=== PATIENT | female | born 1970 | race Two or more races ===

== ENCOUNTER → 2016-08-04 | Outpatient (CLI) | payer OTHER ==
[~2016-08-04] MED LIST: BOSE125T PO; SPIR25TA3 PO
== END | disposition home or self-care (01) ==
LOC: CFH 06:59
PROVIDERS: ATTEND Internal Medicine Cardiovascular Disease
DX: I27.2 Other secondary pulmonary hypertension (principal); I07.1 Rheumatic tricuspid insufficiency; I34.0 Nonrheumatic mitral (valve) insufficiency; I37.1 Nonrheumatic pulmonary valve insufficiency
CPT/HCPCS: 93306

== ENCOUNTER 2016-09-01 09:29 | Day surgery (SDC) | payer OTHER ==
[2016-08-31 16:10] VITALS: BP 92/60
[~2016-09-01] VITALS: Ht 160 cm; Wt 55.0 kg
[2016-09-01] MEDS ORDERED: FENTANYL PF 100 MCG/2ML ONE (10:44)
[2016-09-01] MEDS ORDERED: MIDAZOLAM 1 MG/ML, 5ML ONE (10:44)
[2016-09-01] MEDS ORDERED: LIDOCAINE 2%, 20ML ONE (10:44)
[2016-09-01] MEDS ORDERED: TREP1.743 INH (10:50)
[2016-09-01] MEDS ORDERED: SPIR25TA PO (12:00)
== END 2016-09-01 15:16 | disposition home or self-care (01) ==
LOC: CACL 09:29
PROVIDERS: ATTEND Internal Medicine Cardiovascular Disease
DX: I27.0 Primary pulmonary hypertension (principal); G47.39 Other sleep apnea; K21.9 Gastro-esophageal reflux disease without esophagitis; G43.909 Migraine, unspecified, not intractable, without status migrainosus; E66.01 Morbid (severe) obesity due to excess calories; Z68.21 Body mass index [BMI] 21.0-21.9, adult
CPT/HCPCS: 71020; 93451; 99156; 99157; C1769; C1894; J2250; J3010; J3490

== ENCOUNTER 2016-10-19 10:36 | Day surgery (SDC) | payer OTHER ==
[~2016-10-19] VITALS: Ht 157.5 cm; Wt 55.5 kg
[~2016-10-19 10:36] MED LIST changes: +SPIR25TA PO; +TREP1.743 INH
[2016-10-19] MEDS ORDERED: SODIUM CHLORIDE 0.9% 1,000 ML IV SCH (10:56)
[2016-10-19] MEDS ORDERED: ONDANSETRON 2MG/ML, 2ML IVPush PRN (11:00)
[2016-10-19 11:13] VITALS: BP 85/57
[2016-10-19] MEDS ORDERED: PLEASE ENTER HEIGHT AND WEIGHT MC SCH (11:30)
[2016-10-19] MEDS ORDERED: FENTANYL PF 100 MCG/2ML ONE (11:42)
[2016-10-19] MEDS ORDERED: MIDAZOLAM 1 MG/ML, 5ML ONE (11:42)
[2016-10-19] MEDS ORDERED: LIDOCAINE 2%, 20ML ONE (11:42)
[2016-10-19 12:01] LABS: BLOOD UREA NITROGEN 14 mg/dL (7-18)
[2016-10-19] MEDS ORDERED: VERAPAMIL 2.5 MG/ML, 2ML ONE (12:53)
[2016-10-19] MEDS ORDERED: HEPARIN 1,000 UNITS/ML, 10ML ONE (12:54)
[2016-10-19] MEDS ORDERED: DIPHENHYDRAMINE 50 MG/ML, 1ML ONE (13:18)
== END 2016-10-19 16:43 ==
LOC: CACL 10:36
PROVIDERS: ATTEND Internal Medicine Cardiovascular Disease
DX: R06.02 Shortness of breath (principal); I10 Essential (primary) hypertension; Z98.890 Other specified postprocedural states
CPT/HCPCS: 36415; 80048; 85025; 85610; 85730; 93454; 99156; C1894; J1200; J1644; J2250; J3010; J3490; Q9967

== ENCOUNTER 2016-10-27 04:49 | Inpatient (IN) | payer OTHER ==
[2016-10-26 13:32] LABS: BLOOD UREA NITROGEN 13 mg/dL (7-18)
[2016-10-26 13:34] LABS: ASPARTATE AMINO TRANSFERASE 12 U/L (15-37)
[2016-10-27] VITALS (12 sets, daily range): BP systolic 74–129; BP diastolic 33–72
[~2016-10-27] VITALS: Ht 160 cm; Wt 66.8 kg
[2016-10-27] MEDS ORDERED: CHLORHEXIDINE MOUTHWASH 15 ML UDC MM SCH (05:00)
[2016-10-27] MEDS ORDERED: INSULIN ASPART 100 UNITS/ML, PEN SQ-INSULIN SCH (06:00)
[2016-10-27] MEDS ORDERED: FENTANYL PF 1000 MCG/20ML ONE (06:29)
[2016-10-27] MEDS ORDERED: MIDAZOLAM 10MG/2 ML ONE (06:30)
[2016-10-27] MEDS ORDERED: PROPOFOL 10 MG/ML, 20ML ONE (07:30)
[2016-10-27] MEDS ORDERED: POTASSIUM CHLORIDE 80 MEQ, SODIUM BICARBONATE 8.4% 10 MEQ, MAGNESIUM SULFATE 0.5 GM, LI... IV PRN (07:30)
[2016-10-27] MEDS ORDERED: EPINEPHRINE 2 MG in SODIUM CHLORIDE 0.9% 248 ML IV SCH (07:30)
[2016-10-27] MEDS ORDERED: DEXMEDETOMIDINE 200 MCG in SODIUM CHLORIDE 0.9% 48 ML IV SCH (07:30)
[2016-10-27] MEDS ORDERED: MANNITOL PMX 20% 500 ML IVPB PRN (07:30)
[2016-10-27] MEDS ORDERED: SODIUM CHLORIDE 0.9% IV PRN (07:30)
[2016-10-27] MEDS ORDERED: ALBUMIN HUMAN 5% 500 ML IV ONE (07:30)
[2016-10-27] MEDS ORDERED: ROCURONIUM 10 MG/ML ONE (07:30)
[2016-10-27] MEDS ORDERED: VANCOMYCIN IV PRN (07:30)
[2016-10-27] MEDS ORDERED: CEFUROXIME 1.5 GM in SODIUM CHLORIDE 0.9% 50 ML IVPB PRN (07:30)
[2016-10-27] MEDS ORDERED: PHENYLEPHRINE 10 MG in SODIUM CHLORIDE 0.9% 249 ML IV PRN ×2 (07:30→12:51)
[2016-10-27] MEDS ORDERED: REGULAR INSULIN 62.5 UNITS in SODIUM CHLORIDE 0.9% 249.375 ML IV PRN ×2 (07:30→12:51)
[2016-10-27] MEDS ORDERED: MUPIROCIN OINT 2%, 22GM TP SCH (09:00)
[2016-10-27] MEDS ORDERED: AMINOCAPROIC ACID 250 MG/ML, 20ML ONE (10:17)
[2016-10-27] MEDS ORDERED: PROTAMINE SULFATE 10 MG/ML, 25ML ONE (10:18)
[2016-10-27] MEDS ORDERED: CALCIUM CHLORIDE 10%, 10ML SYR ONE (12:05)
[2016-10-27] MEDS ORDERED: DOBUTAMINE 250 MG in SODIUM CHLORIDE 0.9% 230 ML IV PRN (12:51)
[2016-10-27] MEDS ORDERED: SODIUM CHLORIDE 0.9% 1,000 ML IV PRN (12:51)
[2016-10-27] MEDS ORDERED: DEXMEDETOMIDINE 200 MCG in SODIUM CHLORIDE 0.9% 48 ML IV PRN (12:51)
[2016-10-27] MEDS ORDERED: NITROGLYCERIN/D5W PMX 250 ML IV PRN (12:51)
[2016-10-27] MEDS ORDERED: MIDAZOLAM 1 MG/ML, 5ML IVPush PRN (13:00)
[2016-10-27] MEDS ORDERED: INSULIN ASPART 100 UNITS/ML, PEN SQ-INSULIN PRN (13:00)
[2016-10-27] MEDS ORDERED: DEXTROSE 50%, 50ML SYRINGE IVPush PRN (13:00)
[2016-10-27] MEDS ORDERED: GLUCAGON 1 MG IM PRN (13:00)
[2016-10-27] MEDS: KSCALE TO 4.5 IV SCH ×2 (13:00→18:21)
[2016-10-27] MEDS ORDERED: ACETAMINOPHEN 650 MG SUPP PR PRN (13:00)
[2016-10-27] MEDS ORDERED: MEPERIDINE/PF 25MG/0.5ML IVPush PRN (13:00)
[2016-10-27] MEDS ORDERED: PROCHLORPERAZINE 5 MG/ML, 2ML IVPush PRN (13:00)
[2016-10-27] MEDS ORDERED: BISACODYL 10 MG SUPP PR PRN (13:00)
[2016-10-27] MEDS ORDERED: SODIUM BICARB 8.4%, 50ML SYRINGE IV PRN (13:00)
[2016-10-27] MEDS ORDERED: ACETAMINOPHEN 325 MG TABLET PO PRN (13:00)
[2016-10-27] MEDS ORDERED: BISACODYL 5 MG EC TABLET PO PRN (13:00)
[2016-10-27] MEDS ORDERED: DEXTROSE 4 GM TAB.CHEW PO PRN (13:00)
[2016-10-27] MEDS ORDERED: SODIUM BICARB 8.4%, 50ML SYRINGE ONE (13:17)
[2016-10-27] MEDS ORDERED: ALBUMIN HUMAN 25% 50 ML ONE (13:18)
[2016-10-27] MEDS ORDERED: HEPARIN 1,000 UNITS/ML, 30ML ONE (13:18)
[2016-10-27] MEDS ORDERED: LIDOCAINE 2% 100MG/5ML SYRINGE ONE (13:18)
[2016-10-27] MEDS ORDERED: methylPREDNISolone SOD SUCC 125 MG/2 ML ONE (13:18)
[2016-10-27 13:33] LABS: ABG COLLECTION SITE ARTERIAL LINE
[2016-10-27] MEDS: SODIUM CHLORIDE FLUSH 10ML SYR IVF SCH ×3 (13:59→20:48)
[2016-10-27] MEDS: LACTATED RINGERS 500 ML IVBOLUS PRN ×3 (13:59→17:33)
[2016-10-27] MEDS ORDERED: POTASSIUM CHLORIDE PMX 100 ML IV ONE (14:00)
[2016-10-27] MEDS ORDERED: VASOPRESSIN 100 UNIT in SODIUM CHLORIDE 0.9% 495 ML IV PRN (15:00)
[2016-10-27] MEDS: morphine SULFATE 10 MG/ML, 1ML IVPush PRN ×2 (15:17→17:04)
[2016-10-27] MEDS: MAGNESIUM SULFATE 1 GM in SODIUM CHLORIDE 0.9% 50 ML IVPB SCH (16:47)
[2016-10-27] MEDS ORDERED: NOVOSEVEN RT (FACTOR VIIA) RECOMB 1,000 MCG IVPush ONE ×2 (17:30→21:00)
[2016-10-27] MEDS ORDERED: CALCIUM CHLORIDE 13.6 MEQ in SODIUM CHLORIDE 0.9% 100 ML IV ONE (18:30)
[2016-10-27] MEDS: OXYcodone IR 5MG TABLET PO PRN ×2 (18:49→22:06)
[2016-10-27] MEDS: ONDANSETRON 2MG/ML, 2ML IVPush PRN (19:39)
[2016-10-27] MEDS: VANCOMYCIN 700 MG in SODIUM CHLORIDE 0.9% 100 ML IVPB SCH (20:15)
[2016-10-27] MEDS: CEFUROXIME 1.5 GM in SODIUM CHLORIDE 0.9% 50 ML IVPB SCH (20:16)
[2016-10-27] MEDS: TYVASO IH SCH (20:43)
[2016-10-27] MEDS: DOCUSATE 100 MG CAPSULE PO SCH (20:47)
[2016-10-27] MEDS: TRACLEER 125 MG PO SCH (20:48)
[2016-10-27] MEDS: MUPIROCIN OINT 2%, 22GM NAS SCH (20:55)
[2016-10-28] VITALS (16 sets, daily range): BP systolic 95–111; BP diastolic 36–56
[2016-10-28] MEDS: HYDROcodone/APAP 10/325 MG TABLET PO PRN ×6 (00:48→20:31)
[2016-10-28] MEDS: KSCALE TO 4.5 IV SCH ×2 (01:00→07:00)
[2016-10-28] MEDS ORDERED: POTASSIUM CHLORIDE 30 MEQ in SODIUM CHLORIDE 0.9% 100 ML IV ONE (01:30)
[2016-10-28] MEDS: EPINEPHRINE 2 MG in SODIUM CHLORIDE 0.9% 248 ML IV PRN (02:48)
[2016-10-28] MEDS: VANCOMYCIN 700 MG in SODIUM CHLORIDE 0.9% 100 ML IVPB SCH (08:04)
[2016-10-28] MEDS: CEFUROXIME 1.5 GM in SODIUM CHLORIDE 0.9% 50 ML IVPB SCH (08:04)
[2016-10-28 09:36] LABS: BLOOD UREA NITROGEN 10 mg/dL (7-18)
[2016-10-28] MEDS: MUPIROCIN OINT 2%, 22GM NAS SCH ×2 (10:09→20:28)
[2016-10-28] MEDS: DOCUSATE 100 MG CAPSULE PO SCH ×2 (10:10→20:28)
[2016-10-28] MEDS: PANTOPRAZOLE 40 MG IV IVPush SCH (10:10)
[2016-10-28] MEDS: ASPIRIN 81 MG TABLET EC PO SCH (10:10)
[2016-10-28] MEDS: SODIUM CHLORIDE FLUSH 10ML SYR IVF SCH ×4 (10:11→20:35)
[2016-10-28] MEDS: TYVASO IH SCH ×2 (10:11→20:27)
[2016-10-28] MEDS: TRACLEER 125 MG PO SCH ×2 (10:12→20:28)
[2016-10-28] MEDS: WARFARIN HIGH DOSE PROTOCOL XX SCH (12:00)
[2016-10-28] MEDS: CHLORHEXIDINE MOUTHWASH 15 ML UDC MM SCH (13:05)
[2016-10-28] MEDS: ONDANSETRON 2MG/ML, 2ML IVPush PRN (14:35)
[2016-10-28] MEDS ORDERED: ALBUMIN HUMAN 5% 500 ML IV ONE (16:00)
[2016-10-28] MEDS: MAGNESIUM SULFATE 1 GM in SODIUM CHLORIDE 0.9% 50 ML IVPB SCH (16:03)
[2016-10-28] MEDS: OXYcodone IR 5MG TABLET PO PRN (16:23)
[2016-10-28] MEDS ORDERED: WARFARIN 10 MG TABLET PO-COUM SCH (18:00)
[2016-10-28] MEDS: INSULIN ASPART 100 UNITS/ML, PEN SQ-INSULIN SCH (20:26)
[2016-10-28] MEDS ORDERED: ALBUTEROL/IPRATROPIUM 2.5MG/0.5MG, 3 ML NPPB PRN (21:30)
[2016-10-29] MEDS: INSULIN ASPART 100 UNITS/ML, PEN SQ-INSULIN SCH ×7 (00:31→23:54)
[2016-10-29] MEDS: HYDROcodone/APAP 10/325 MG TABLET PO PRN ×5 (00:32→21:03)
[2016-10-29] MEDS: CHLORHEXIDINE MOUTHWASH 15 ML UDC MM SCH ×2 (00:35→14:58)
[2016-10-29] MEDS: EPINEPHRINE 2 MG in SODIUM CHLORIDE 0.9% 248 ML IV PRN ×3 (04:02→23:25)
[2016-10-29 04:10] VITALS: BP 95/49
[2016-10-29 04:47] LABS: BLOOD UREA NITROGEN 8 mg/dL (7-18)
[2016-10-29] MEDS ORDERED: FUROSEMIDE 40 MG/4 ML IV ONE ×3 (08:40→17:00)
[2016-10-29] MEDS: SODIUM CHLORIDE FLUSH 10ML SYR IVF SCH ×4 (09:00→21:04)
[2016-10-29] MEDS ORDERED: FUROSEMIDE 20 MG/2 ML IV SCH ×2 (09:00→17:00)
[2016-10-29] MEDS ORDERED: ENOXAPARIN 40 MG/0.4 ML SQ SCH (09:00)
[2016-10-29] MEDS: TYVASO IH SCH ×2 (09:14→21:00)
[2016-10-29] MEDS: DOCUSATE 100 MG CAPSULE PO SCH ×2 (09:15→21:02)
[2016-10-29] MEDS: POTASSIUM CHLORIDE 10 MEQ TABLET.ER PO SCH (09:15)
[2016-10-29] MEDS: MUPIROCIN OINT 2%, 22GM NAS SCH ×2 (09:15→21:01)
[2016-10-29] MEDS: PANTOPRAZOLE 40 MG IV IVPush SCH (09:15)
[2016-10-29] MEDS: ASPIRIN 81 MG TABLET EC PO SCH (09:15)
[2016-10-29] MEDS: TRACLEER 125 MG PO SCH ×2 (09:15→21:02)
[2016-10-29] MEDS ORDERED: POTASSIUM CHLORIDE 20 MEQ TAB.ER.PRT PO ONE ×2 (10:30→17:00)
[2016-10-29] MEDS: WARFARIN HIGH DOSE PROTOCOL XX SCH (12:00)
[2016-10-29] MEDS: ONDANSETRON 2MG/ML, 2ML IVPush PRN (12:17)
[2016-10-29] MEDS: MAGNESIUM SULFATE 1 GM in SODIUM CHLORIDE 0.9% 50 ML IVPB SCH (16:56)
[2016-10-29] MEDS ORDERED: FUROSEMIDE 40 MG/4 ML IV SCH (17:00)
[2016-10-29] MEDS ORDERED: WARFARIN 10 MG TABLET PO-COUM SCH (18:00)
[2016-10-29] MEDS ORDERED: ACETAMINOPHEN 325 MG TABLET PO PRN (21:00)
[2016-10-29] MEDS ORDERED: BISACODYL 10 MG SUPP PR PRN (21:00)
[2016-10-29] MEDS ORDERED: DOBUTAMINE 250 MG in SODIUM CHLORIDE 0.9% 230 ML IV PRN (21:00)
[2016-10-29] MEDS ORDERED: SODIUM BICARB 8.4%, 50ML SYRINGE IV PRN (21:00)
[2016-10-29] MEDS ORDERED: ACETAMINOPHEN 650 MG SUPP PR PRN (21:30)
[2016-10-29] MEDS ORDERED: MIDAZOLAM 1 MG/ML, 5ML IVPush PRN (21:30)
[2016-10-29] MEDS ORDERED: GLUCAGON 1 MG IM PRN (21:30)
[2016-10-29] MEDS ORDERED: DEXTROSE 50%, 50ML SYRINGE IVPush PRN (21:30)
[2016-10-29] MEDS ORDERED: OXYcodone IR 5MG TABLET PO PRN (21:30)
[2016-10-29] MEDS ORDERED: ALBUTEROL/IPRATROPIUM 2.5MG/0.5MG, 3 ML NPPB PRN (21:30)
[2016-10-29] MEDS ORDERED: DEXTROSE 4 GM TAB.CHEW PO PRN (21:30)
[2016-10-30] MEDS: CHLORHEXIDINE MOUTHWASH 15 ML UDC MM SCH (02:03)
[2016-10-30] MEDS: INSULIN ASPART 100 UNITS/ML, PEN SQ-INSULIN SCH ×5 (04:00→20:42)
[2016-10-30] MEDS: HYDROcodone/APAP 10/325 MG TABLET PO PRN (04:00)
[2016-10-30 04:11] VITALS: BP 94/47
[2016-10-30] MEDS: ONDANSETRON 2MG/ML, 2ML IVPush PRN ×3 (06:23→15:30)
[2016-10-30] MEDS: EPINEPHRINE 2 MG in SODIUM CHLORIDE 0.9% 248 ML IV PRN ×4 (06:29→20:20)
[2016-10-30 07:14] LABS: BLOOD UREA NITROGEN 8 mg/dL (7-18)
[2016-10-30] MEDS ORDERED: SODIUM CHLORIDE 0.9%, 500ML IVBOLUS ONE ×2 (08:30→16:00)
[2016-10-30] MEDS ORDERED: FUROSEMIDE 20 MG/2 ML IV SCH (09:00)
[2016-10-30] MEDS: TYVASO IH SCH ×2 (09:00→20:47)
[2016-10-30] MEDS: TRACLEER 125 MG PO SCH ×2 (09:00→20:43)
[2016-10-30] MEDS ORDERED: POTASSIUM CHLORIDE 20 MEQ TAB.ER.PRT PO ONE (09:00)
[2016-10-30] MEDS: POTASSIUM CHLORIDE 10 MEQ TABLET.ER PO SCH (09:00)
[2016-10-30] MEDS: SODIUM CHLORIDE FLUSH 10ML SYR IVF SCH ×4 (10:06→20:48)
[2016-10-30] MEDS: PANTOPRAZOLE 40 MG IV IVPush SCH (10:21)
[2016-10-30] MEDS: MUPIROCIN OINT 2%, 22GM NAS SCH ×2 (10:21→20:44)
[2016-10-30] MEDS: DOCUSATE 100 MG CAPSULE PO SCH ×2 (10:22→20:44)
[2016-10-30] MEDS: ASPIRIN 81 MG TABLET EC PO SCH (10:44)
[2016-10-30] MEDS: POTASSIUM CHLORIDE 40 MEQ in D5%-0.9% NACL 1,000 ML IV SCH ×3 (11:41→23:12)
[2016-10-30 11:54] VITALS: BP 82/55
[2016-10-30] MEDS: WARFARIN HIGH DOSE PROTOCOL XX SCH (12:00)
[2016-10-30 12:15] VITALS: BP 87/59
[2016-10-30 13:37] VITALS: BP 81/53
[2016-10-30 14:03] LABS: IS PT STATUS REG ER OR PRE ER? NO
[2016-10-30] MEDS ORDERED: ONDANSETRON 2MG/ML, 2ML ONE (15:28)
[2016-10-30] MEDS: PROCHLORPERAZINE 5 MG/ML, 2ML IVPush PRN (16:44)
[2016-10-30] MEDS ORDERED: WARFARIN 10 MG TABLET PO-COUM SCH (18:00)
[2016-10-30 21:44] LABS: IS PT STATUS REG ER OR PRE ER? NO
[2016-10-31 03:42] LABS: BLOOD UREA NITROGEN 9 mg/dL (7-18)
[2016-10-31 03:47] LABS: IS PT STATUS REG ER OR PRE ER? NO
[2016-10-31] MEDS: INSULIN ASPART 100 UNITS/ML, PEN SQ-INSULIN SCH ×6 (04:39→20:00)
[2016-10-31] MEDS: POTASSIUM CHLORIDE 40 MEQ in D5%-0.9% NACL 1,000 ML IV SCH (06:19)
[2016-10-31] MEDS: EPINEPHRINE 4 MG in SODIUM CHLORIDE 0.9% 246 ML IV PRN ×2 (06:20→22:12)
[2016-10-31] MEDS: ONDANSETRON 2MG/ML, 2ML IVPush PRN ×2 (08:44→15:48)
[2016-10-31] MEDS: SODIUM CHLORIDE FLUSH 10ML SYR IVF SCH ×4 (08:45→21:03)
[2016-10-31] MEDS ORDERED: SODIUM CHLORIDE 0.9% 1,000ML IV ONE (09:00)
[2016-10-31] MEDS: TRACLEER 125 MG PO SCH ×2 (09:00→21:00)
[2016-10-31] MEDS: TYVASO IH SCH ×2 (09:00→21:00)
[2016-10-31] MEDS: MUPIROCIN OINT 2%, 22GM NAS SCH ×2 (09:08→21:03)
[2016-10-31] MEDS: HYDROcodone/APAP 10/325 MG TABLET PO PRN ×2 (09:08→15:48)
[2016-10-31] MEDS: DOCUSATE 100 MG CAPSULE PO SCH ×2 (09:08→21:03)
[2016-10-31] MEDS: PANTOPRAZOLE 40 MG IV IVPush SCH (09:08)
[2016-10-31] MEDS: ASPIRIN 81 MG TABLET EC PO SCH (09:08)
[2016-10-31] MEDS: POTASSIUM CHLORIDE 10 MEQ TABLET.ER PO SCH (09:10)
[2016-10-31] MEDS ORDERED: LIDOCAINE 1%, 20ML ONE (09:28)
[2016-10-31] MEDS: WARFARIN HIGH DOSE PROTOCOL XX SCH (12:00)
[2016-10-31] MEDS ORDERED: WARFARIN 10 MG TABLET PO-COUM ONE (18:00)
[2016-11-01] MEDS: HYDROcodone/APAP 10/325 MG TABLET PO PRN ×3 (00:59→20:16)
[2016-11-01] MEDS: ONDANSETRON 2MG/ML, 2ML IVPush PRN ×3 (00:59→19:55)
[2016-11-01] MEDS: INSULIN ASPART 100 UNITS/ML, PEN SQ-INSULIN SCH ×2 (04:00)
[2016-11-01 05:42] LABS: BLOOD UREA NITROGEN 7 mg/dL (7-18); TOTAL IRON BINDING CAPACITY 192 mcg/dL (250-450)
[2016-11-01] MEDS: TYVASO IH SCH ×4 (05:49→21:00)
[2016-11-01] MEDS: MUPIROCIN OINT 2%, 22GM NAS SCH (10:38)
[2016-11-01] MEDS: DOCUSATE 100 MG CAPSULE PO SCH ×2 (10:38→21:01)
[2016-11-01] MEDS: BISACODYL 5 MG EC TABLET PO PRN ×2 (10:38→12:04)
[2016-11-01] MEDS: ASPIRIN 81 MG TABLET EC PO SCH (10:38)
[2016-11-01] MEDS: SODIUM CHLORIDE FLUSH 10ML SYR IVF SCH ×4 (10:40→21:01)
[2016-11-01] MEDS: TRACLEER 125 MG PO SCH ×2 (10:40→21:01)
[2016-11-01] MEDS: WARFARIN HIGH DOSE PROTOCOL XX SCH (12:00)
[2016-11-01] MEDS ORDERED: MAGNESIUM SULFATE PMX 2GM/50ML 50 ML IV ONE (15:00)
[2016-11-02 03:51] LABS: BLOOD UREA NITROGEN 11 mg/dL (7-18)
[2016-11-02] MEDS: HYDROcodone/APAP 10/325 MG TABLET PO PRN ×3 (03:53→22:44)
[2016-11-02] MEDS: ONDANSETRON 2MG/ML, 2ML IVPush PRN ×3 (03:53→22:44)
[2016-11-02] MEDS: TYVASO IH SCH ×4 (05:39→20:45)
[2016-11-02] MEDS: SODIUM CHLORIDE FLUSH 10ML SYR IVF SCH ×3 (09:00→20:43)
[2016-11-02] MEDS: IRON SUCROSE COMPLEX 100MG/5ML IV SCH (09:30)
[2016-11-02] MEDS: BISACODYL 5 MG EC TABLET PO PRN (09:31)
[2016-11-02] MEDS: ASPIRIN 81 MG TABLET EC PO SCH (09:31)
[2016-11-02] MEDS: DOCUSATE 100 MG CAPSULE PO SCH ×2 (09:31→20:43)
[2016-11-02] MEDS: MULTIVITAMINS WITH IRON TABLET PO SCH (09:31)
[2016-11-02] MEDS: TRACLEER 125 MG PO SCH ×2 (09:31→20:44)
[2016-11-02] MEDS: WARFARIN HIGH DOSE PROTOCOL XX SCH (12:00)
[2016-11-02] MEDS ORDERED: MAGNESIUM HYDROXIDE 8%, 30ML UDC PO PRN (15:30)
[2016-11-02] MEDS ORDERED: WARFARIN 5 MG TABLET PO-COUM SCH (18:00)
[2016-11-02 18:19] VITALS: BP 86/50
[2016-11-02 19:14] VITALS: BP 80/42
[2016-11-02 20:09] VITALS: BP 82/44
[2016-11-02] MEDS ORDERED: SODIUM CHLORIDE FLUSH 10ML SYR IVF SCH (21:00)
[2016-11-03 00:53] VITALS: BP 73/42
[2016-11-03 05:00] VITALS: BP 95/55
[2016-11-03] MEDS: TYVASO IH SCH ×4 (06:00→20:55)
[2016-11-03 06:44] LABS: BLOOD UREA NITROGEN 9 mg/dL (7-18)
[2016-11-03 07:25] VITALS: BP 86/46
[2016-11-03] MEDS: ASPIRIN 81 MG TABLET EC PO SCH (08:41)
[2016-11-03] MEDS: PROCHLORPERAZINE 5 MG/ML, 2ML IVPush PRN (08:41)
[2016-11-03] MEDS: MULTIVITAMINS WITH IRON TABLET PO SCH (08:41)
[2016-11-03] MEDS: DOCUSATE 100 MG CAPSULE PO SCH ×2 (08:41→20:54)
[2016-11-03] MEDS: SODIUM CHLORIDE FLUSH 10ML SYR IVF SCH ×2 (08:41→20:55)
[2016-11-03] MEDS: HYDROcodone/APAP 10/325 MG TABLET PO PRN ×3 (08:41→20:54)
[2016-11-03] MEDS: MAGNESIUM HYDROXIDE 8%, 30ML UDC PO SCH (08:41)
[2016-11-03] MEDS: IRON SUCROSE COMPLEX 100MG/5ML IV SCH (08:42)
[2016-11-03] MEDS: TRACLEER 125 MG PO SCH ×2 (08:42→20:55)
[2016-11-03] MEDS: WARFARIN HIGH DOSE PROTOCOL XX SCH (12:00)
[2016-11-03] MEDS: BISACODYL 5 MG EC TABLET PO PRN (12:55)
[2016-11-03 15:05] VITALS: BP 77/46
[2016-11-03 15:47] VITALS: BP 92/58
[2016-11-03] MEDS ORDERED: WARFARIN 5 MG TABLET PO-COUM ONE (18:00)
[2016-11-03 21:03] VITALS: BP 85/52
[2016-11-04 01:35] VITALS: BP 72/43
[2016-11-04] MEDS: TYVASO IH SCH ×4 (06:00→20:43)
[2016-11-04] MEDS: PROCHLORPERAZINE 5 MG/ML, 2ML IVPush PRN (06:14)
[2016-11-04] MEDS: HYDROcodone/APAP 10/325 MG TABLET PO PRN ×3 (06:14→21:14)
[2016-11-04 06:15] LABS: BLOOD UREA NITROGEN 6 mg/dL (7-18)
[2016-11-04 08:03] VITALS: BP 79/44
[2016-11-04] MEDS: MAGNESIUM HYDROXIDE 8%, 30ML UDC PO SCH (08:05)
[2016-11-04] MEDS: MULTIVITAMINS WITH IRON TABLET PO SCH (08:05)
[2016-11-04] MEDS: DOCUSATE 100 MG CAPSULE PO SCH ×2 (08:05→20:42)
[2016-11-04] MEDS: TRACLEER 125 MG PO SCH ×2 (08:05→20:43)
[2016-11-04] MEDS: IRON SUCROSE COMPLEX 100MG/5ML IV SCH (08:05)
[2016-11-04] MEDS: SODIUM CHLORIDE FLUSH 10ML SYR IVF SCH ×2 (08:05→20:43)
[2016-11-04] MEDS: ASPIRIN 81 MG TABLET EC PO SCH (08:05)
[2016-11-04] MEDS ORDERED: POTASSIUM CHLORIDE 20 MEQ TAB.ER.PRT PO ONE (10:00)
[2016-11-04] MEDS: BISACODYL 5 MG EC TABLET PO PRN (11:22)
[2016-11-04] MEDS: WARFARIN HIGH DOSE PROTOCOL XX SCH (11:23)
[2016-11-04 15:19] VITALS: BP 88/52
[2016-11-04] MEDS ORDERED: WARFARIN 5 MG TABLET PO-COUM ONE (18:00)
[2016-11-04 21:00] VITALS: BP 88/50
[2016-11-05 01:29] VITALS: BP 83/39
[2016-11-05] MEDS: HYDROcodone/APAP 10/325 MG TABLET PO PRN ×4 (03:09→20:23)
[2016-11-05 05:24] LABS: BLOOD UREA NITROGEN 6 mg/dL (7-18)
[2016-11-05] MEDS: TYVASO IH SCH ×3 (06:00→16:04)
[2016-11-05 08:56] VITALS: BP 88/50
[2016-11-05] MEDS: SODIUM CHLORIDE FLUSH 10ML SYR IVF SCH (08:58)
[2016-11-05] MEDS: MULTIVITAMINS WITH IRON TABLET PO SCH (08:59)
[2016-11-05] MEDS: MAGNESIUM HYDROXIDE 8%, 30ML UDC PO SCH (08:59)
[2016-11-05] MEDS: DOCUSATE 100 MG CAPSULE PO SCH (08:59)
[2016-11-05] MEDS: ASPIRIN 81 MG TABLET EC PO SCH (08:59)
[2016-11-05] MEDS: TRACLEER 125 MG PO SCH (09:02)
[2016-11-05] MEDS ORDERED: ASPI-621 PO (09:59)
[2016-11-05] MEDS ORDERED: DOCU-30 PO (09:59)
[2016-11-05] MEDS ORDERED: Miscellaneous PO (09:59)
[2016-11-05] MEDS: WARFARIN HIGH DOSE PROTOCOL XX SCH (11:13)
[2016-11-05] MEDS ORDERED: HYDR-3307 PO (11:19)
[2016-11-05 16:02] VITALS: BP 92/62
[2016-11-05 19:18] VITALS: BP 87/48
[2016-11-05] MEDS ORDERED: MAGNESIUM HYDROXIDE 8%, 30ML UDC PO PRN (20:30)
[2016-11-06] MEDS ORDERED: WARFARIN HIGH DOSE PROTOCOL XX SCH (12:00)
== END 2016-11-05 20:27 | disposition home or self-care (01) | DRG 219 ==
LOC: 5SO 04:49 → CCU 08:07 → ICU 10-29 17:31 → 5SO 11-02 18:00
PROVIDERS: ADMIT Thoracic Surgery (Cardiothoracic Vascular Surgery); ATTEND Thoracic Surgery (Cardiothoracic Vascular Surgery)
PROC: 02R Heart and Great Vessels, Replacement (ICD-10-PCS; 2016-10-27)
PROC: 02Q Heart and Great Vessels, Repair (ICD-10-PCS; 2016-10-27)
PROC: 5A1223Z Performance of Cardiac Pacing, Continuous (ICD-10-PCS; 2016-10-27)
PROC: B24BZZ4 Ultrasonography of Heart with Aorta, Transesophageal (ICD-10-PCS; 2016-10-27)
PROC: 5A1221Z Performance of Cardiac Output, Continuous (ICD-10-PCS; 2016-10-27)
PROC: 30233L1 Transfusion of Nonautologous Fresh Plasma into Peripheral Vein, Percutaneous Approach (ICD-10-PCS; 2016-10-27)
PROC: 30233N1 Transfusion of Nonautologous Red Blood Cells into Peripheral Vein, Percutaneous Approach (ICD-10-PCS; 2016-10-27)
PROC: 30233R1 Transfusion of Nonautologous Platelets into Peripheral Vein, Percutaneous Approach (ICD-10-PCS; 2016-10-27)
PROC: 30233M1 Transfusion of Nonautologous Plasma Cryoprecipitate into Peripheral Vein, Percutaneous Approach (ICD-10-PCS; 2016-10-27)
PROC: 30233K1 Transfusion of Nonautologous Frozen Plasma into Peripheral Vein, Percutaneous Approach (ICD-10-PCS; 2016-10-27)
PROC: 02R Heart and Great Vessels, Replacement (ICD-10-PCS; principal; 2016-10-27 07:30)
PROC: 5A09357 Assistance with Respiratory Ventilation, Less than 24 Consecutive Hours, Continuous Positive Airway Pressure (ICD-10-PCS; 2016-10-28)
PROC: 0W9930Z Drainage of Right Pleural Cavity with Drainage Device, Percutaneous Approach (ICD-10-PCS; 2016-10-31)
DX: I28.1 Aneurysm of pulmonary artery (principal); J96.00 Acute respiratory failure, unspecified whether with hypoxia or hypercapnia; I21.4 Non-ST elevation (NSTEMI) myocardial infarction; I27.0 Primary pulmonary hypertension; I42.9 Cardiomyopathy, unspecified; J81.1 Chronic pulmonary edema; J90 Pleural effusion, not elsewhere classified; I37.1 Nonrheumatic pulmonary valve insufficiency; D64.9 Anemia, unspecified; D69.6 Thrombocytopenia, unspecified; I71.2 Thoracic aortic aneurysm, without rupture; Z98.84 Bariatric surgery status; I95.9 Hypotension, unspecified
CPT/HCPCS: 32555; 36415; 71010; 71020; 80048; 80053; 81003; 82040; 82330; 82800; 82803; 82810; 82947; 82962; 83036; 83540; 83550; 83735; 84132; 84295; 84484; 85014; 85018; 85025; 85049; 85347; 85610; 85730; 86850; 86900; 86923; 87081; 88304; 93005; 93306; 93308; 93312; 93321; 93325; 93880; 94002; 94150; 94640; 94660; J0697; J1644; J1756; J1815; J1940; J2250; J2405; J2704; J2720; J3010; J3370; J3475; J3480; J3490; J7042; J7120; J7189; P9045; P9047; C1751; C1760; C1762; C1768; C9113; J0171; J0780; J2270; J2370; J2930; J7030; J7040; J7050; P9012; P9016; P9017; P9035

== ENCOUNTER 2016-11-14 09:06 | Inpatient (IN) | payer OTHER ==
[~2016-11-14] VITALS: Ht 157.5 cm; Wt 62.3 kg
[~2016-11-14 09:06] MED LIST changes: +ASPI-621 PO; +DOCU-30 PO; +HYDR-3307 PO; +Miscellaneous PO
[2016-11-14] MEDS ORDERED: SODIUM CHLORIDE 0.9% 1,000ML IVBOLUS ONE (09:30)
[2016-11-14] MEDS ORDERED: SODIUM CHLORIDE FLUSH 10ML SYR IVF ONE (09:30)
[2016-11-14 10:03] LABS: HEMATOCRIT 26.4 % (34.6-47.8); HEMOGLOBIN 8.6 g/dL (11.7-16.4); WHITE BLOOD COUNT 4.6 x10^3/uL (3.4-10)
[2016-11-14 10:13] LABS: ASPARTATE AMINO TRANSFERASE 15 U/L (15-37); BLOOD UREA NITROGEN 9 mg/dL (7-18)
[2016-11-14 10:19] LABS: IS PT STATUS REG ER OR PRE ER? YES
[2016-11-14] MEDS ORDERED: SODIUM CHLORIDE 0.9%, 500ML IVBOLUS ONE (10:30)
[2016-11-14 17:50] LABS: IS PT STATUS REG ER OR PRE ER? NO
[2016-11-14 19:58] VITALS: BP 84/51
[2016-11-14] MEDS ORDERED: PROMETHAZINE 25 MG/ML, 1ML IM PRN (20:00)
[2016-11-14] MEDS ORDERED: DOCUSATE 100 MG CAPSULE PO PRN (20:00)
[2016-11-14] MEDS ORDERED: METOCLOPRAMIDE 5 MG/ML, 2ML IVPush PRN (20:00)
[2016-11-14] MEDS ORDERED: POLYETHYLENE GLYCOL 17 GM PACKET PO PRN (20:00)
[2016-11-14] MEDS ORDERED: morphine SULFATE 10 MG/ML, 1ML IVPush PRN (20:00)
[2016-11-14] MEDS ORDERED: BISACODYL 10 MG SUPP PR PRN (20:00)
[2016-11-14] MEDS: BOSENTAN 125 MG PO SCH (20:38)
[2016-11-14] MEDS: TREPROSTINIL INH SCH (20:38)
[2016-11-14] MEDS: HYDROcodone/APAP 5/325 TABLET PO PRN ×2 (20:42→20:44)
[2016-11-14 23:07] LABS: IS PT STATUS REG ER OR PRE ER? NO
[2016-11-15] VITALS (9 sets, daily range): BP systolic 66–93; BP diastolic 34–59
[2016-11-15] MEDS: HYDROcodone/APAP 5/325 TABLET PO PRN ×2 (03:05→08:03)
[2016-11-15 05:31] LABS: HEMOGLOBIN 7.3 g/dL (11.7-16.4); WHITE BLOOD COUNT 4.1 x10^3/uL (3.4-10)
[2016-11-15 05:37] LABS: ASPARTATE AMINO TRANSFERASE 10 U/L (15-37); BLOOD UREA NITROGEN 9 mg/dL (7-18)
[2016-11-15 05:41] LABS: HEMATOCRIT 22.8 % (34.6-47.8); IS PT STATUS REG ER OR PRE ER? NO
[2016-11-15] MEDS: TREPROSTINIL INH SCH ×2 (09:32→20:07)
[2016-11-15] MEDS: BOSENTAN 125 MG PO SCH ×2 (09:32→20:07)
[2016-11-15] MEDS: SENNA/DOCUSATE TABLET PO SCH (09:35)
[2016-11-15] MEDS: ONDANSETRON 2MG/ML, 2ML IVPush PRN (10:42)
[2016-11-15 12:12] LABS: HEMATOCRIT 27.3 % (34.6-47.8); HEMOGLOBIN 8.9 g/dL (11.7-16.4)
[2016-11-16] MEDS: HYDROcodone/APAP 5/325 TABLET PO PRN (00:50)
[2016-11-16 02:30] VITALS: BP 81/39
[2016-11-16] MEDS ORDERED: SODIUM CHLORIDE 0.9% 1,000ML IVBOLUS ONE ×2 (03:00→22:30)
[2016-11-16 03:08] LABS: HEMATOCRIT 25.2 % (34.6-47.8); HEMOGLOBIN 8.2 g/dL (11.7-16.4); WHITE BLOOD COUNT 5.6 x10^3/uL (3.4-10)
[2016-11-16 03:11] LABS: BLOOD UREA NITROGEN 11 mg/dL (7-18)
[2016-11-16 06:39] VITALS: BP 76/41
[2016-11-16] MEDS: TREPROSTINIL INH SCH ×2 (09:00→21:00)
[2016-11-16] MEDS: BOSENTAN 125 MG PO SCH ×2 (09:00→21:00)
[2016-11-16] MEDS: ONDANSETRON 2MG/ML, 2ML IVPush PRN (09:46)
[2016-11-16] MEDS: SENNA/DOCUSATE TABLET PO SCH (11:28)
[2016-11-16 11:29] VITALS: BP 81/46
[2016-11-16 12:25] VITALS: BP 83/45
[2016-11-16] MEDS ORDERED: WARFARIN 2.5 MG TABLET PO-COUM ONE (18:00)
[2016-11-16 19:23] VITALS: BP 83/44
[2016-11-17] VITALS (12 sets, daily range): BP systolic 78–104; BP diastolic 35–62
[2016-11-17] MEDS ORDERED: SODIUM CHLORIDE 0.9% 1,000ML IVBOLUS ONE
[2016-11-17 05:52] LABS: BLOOD UREA NITROGEN 7 mg/dL (7-18)
[2016-11-17 06:15] LABS: HEMATOCRIT 27.9 % (34.6-47.8); HEMOGLOBIN 9.2 g/dL (11.7-16.4); WHITE BLOOD COUNT 5.4 x10^3/uL (3.4-10)
[2016-11-17] MEDS: TREPROSTINIL INH SCH ×2 (09:00→20:16)
[2016-11-17] MEDS: BOSENTAN 125 MG PO SCH ×2 (09:00→21:09)
[2016-11-17] MEDS: SENNA/DOCUSATE TABLET PO SCH (09:27)
[2016-11-17 09:32] LABS: IS PT STATUS REG ER OR PRE ER? NO
[2016-11-17] MEDS ORDERED: WARFARIN 7.5 MG TABLET PO-COUM ONE (18:00)
[2016-11-18 02:00] VITALS: BP 90/53
[2016-11-18 05:02] LABS: HEMATOCRIT 33.4 % (34.6-47.8)
[2016-11-18 05:12] LABS: BLOOD UREA NITROGEN 7 mg/dL (7-18)
[2016-11-18 05:17] LABS: ASPARTATE AMINO TRANSFERASE 9 U/L (15-37)
[2016-11-18 06:35] VITALS: BP 91/51
[2016-11-18] MEDS: ACETAMINOPHEN 325 MG TABLET PO PRN ×2 (08:16→20:06)
[2016-11-18] MEDS: SENNA/DOCUSATE TABLET PO SCH (08:16)
[2016-11-18] MEDS: TREPROSTINIL INH SCH ×2 (08:17→20:06)
[2016-11-18] MEDS: BOSENTAN 125 MG PO SCH ×2 (08:17→20:07)
[2016-11-18 13:24] VITALS: BP 86/53
[2016-11-18 19:51] VITALS: BP 93/63
[2016-11-19 02:13] VITALS: BP 89/53
[2016-11-19 05:38] LABS: HEMATOCRIT 31.1 % (34.6-47.8); HEMOGLOBIN 10.3 g/dL (11.7-16.4); WHITE BLOOD COUNT 5.7 x10^3/uL (3.4-10)
[2016-11-19 05:59] LABS: BLOOD UREA NITROGEN 8 mg/dL (7-18)
[2016-11-19] MEDS: ACETAMINOPHEN 325 MG TABLET PO PRN (07:40)
[2016-11-19 07:47] VITALS: BP 88/50
[2016-11-19] MEDS: BOSENTAN 125 MG PO SCH (08:42)
[2016-11-19] MEDS: TREPROSTINIL INH SCH (08:42)
[2016-11-19] MEDS: SENNA/DOCUSATE TABLET PO SCH (09:00)
[2016-11-19] MEDS ORDERED: SENN1TAB7 PO (11:46)
[2016-11-19] MEDS ORDERED: POLY17PO5 PO (11:46)
[2016-11-19] MEDS ORDERED: FLU VACCINE PER PHARMACY IM ONE (12:00)
== END 2016-11-19 14:07 | disposition home or self-care (01) | DRG 813 ==
LOC: ED 10:42 → EDIP 11:24 → 4EST 14:20 → 5SO 11-17 12:12
PROVIDERS: ADMIT Family Medicine; ATTEND Internal Medicine
PROC: 30233N1 Transfusion of Nonautologous Red Blood Cells into Peripheral Vein, Percutaneous Approach (ICD-10-PCS; principal; 2016-11-15)
DX: D68.32 Hemorrhagic disorder due to extrinsic circulating anticoagulants (principal); I95.89 Other hypotension; J90 Pleural effusion, not elsewhere classified; J96.10 Chronic respiratory failure, unspecified whether with hypoxia or hypercapnia; D62 Acute posthemorrhagic anemia; D68.69 Other thrombophilia; I31.3 Pericardial effusion (noninflammatory); J98.11 Atelectasis; E66.9 Obesity, unspecified; N92.0 Excessive and frequent menstruation with regular cycle; I27.2 Other secondary pulmonary hypertension; I07.1 Rheumatic tricuspid insufficiency; D63.8 Anemia in other chronic diseases classified elsewhere; I10 Essential (primary) hypertension; N93.8 Other specified abnormal uterine and vaginal bleeding; N83.00 Follicular cyst of ovary, unspecified side; T45.515A Adverse effect of anticoagulants, initial encounter; Y92.89 Other specified places as the place of occurrence of the external cause; Z79.01 Long term (current) use of anticoagulants; Z87.891 Personal history of nicotine dependence; Z95.1 Presence of aortocoronary bypass graft; Z95.2 Presence of prosthetic heart valve; Z98.84 Bariatric surgery status; Z99.81 Dependence on supplemental oxygen; Z68.25 Body mass index [BMI] 25.0-25.9, adult
CPT/HCPCS: 36415; 71010; 76830; 80048; 80053; 82962; 83605; 83735; 84100; 84145; 84443; 84484; 85014; 85018; 85025; 85610; 85730; 86850; 86900; 86923; 87040; 93005; 93306; J2405; J7030; J7040; P9016

== ENCOUNTER 2016-11-20 18:59 | Emergency (ER) | payer OTHER ==
[~2016-11-20] VITALS: Ht 165.1 cm; Wt 56.1 kg
[~2016-11-20 18:59] MED LIST changes: +DOCU-131 PO; -DOCU-30 PO; +POLY17PO5 PO; +SENN1TAB7 PO
[2016-11-20] MEDS ORDERED: SODIUM CHLORIDE 0.9% 1,000ML IVBOLUS ONE (19:30)
[2016-11-20] MEDS ORDERED: SODIUM CHLORIDE FLUSH 10ML SYR IVF ONE (19:30)
[2016-11-20 19:41] LABS: HEMOGLOBIN 10.4 g/dL (11.7-16.4); WHITE BLOOD COUNT 6.3 x10^3/uL (3.4-10)
[2016-11-20 19:51] LABS: ASPARTATE AMINO TRANSFERASE 14 U/L (15-37); BLOOD UREA NITROGEN 10 mg/dL (7-18)
[2016-11-20 20:19] VITALS: BP 90/44
== END 2016-11-20 20:38 | disposition home or self-care (01) ==
LOC: ED 20:29
DX: I95.89 Other hypotension (principal); I27.2 Other secondary pulmonary hypertension; D64.9 Anemia, unspecified; I10 Essential (primary) hypertension
CPT/HCPCS: 36415; 71010; 80053; 85025; 99285

== ENCOUNTER → 2018-02-01 | Outpatient (CLI) | payer OTHER ==
[~2018-02-01] MED LIST changes: -SENN1TAB7 PO; +SENN1TAB8 PO; -SPIR25TA3 PO; +SPIR25TA5 PO
[2018-02-01 12:32] LABS: BASOPHILS # (AUTO) 0.02 x10^3/uL (0-0.1); BASOPHILS % (AUTO) 1 % (0-1); EOSINOPHILS # (AUTO) 0.08 x10^3/uL (0-0.4); EOSINOPHILS % (AUTO) 2 % (1-7); LYMPHOCYTES # (AUTO) 1.42 x10^3/uL (1-3.4); LYMPHOCYTES % (AUTO) 34 % (22-44); MD NO; MEAN CORPUSCULAR HEMOGLOBIN 33.2 pg (27.0-34.8); MEAN CORPUSCULAR HGB CONC 33.6 g/dL (32.4-35.8); MEAN CORPUSCULAR VOLUME 98.9 fL (80-100); MEAN PLATELET VOLUME 11.1 fL (7.4-10.4); MONOCYTES # (AUTO) 0.35 x10^3/uL (0.2-0.8); MONOCYTES % (AUTO) 9 % (2-9); NEUTROPHILS # (AUTO) 2.27 x10^3/uL (1.8-6.8); NEUTROPHILS % (AUTO) 55 % (42-75); PLATELET COUNT 127 x10^3/uL (130-400); RED BLOOD COUNT 4.43 x10^6/uL (3.82-5.3); RED CELL DISTRIBUTION WIDTH 13.9 % (9.6-15.2)
[2018-02-01 12:41] LABS: ALANINE AMINOTRANSFERASE 20 U/L (12-78); ALBUMIN 3.9 g/dL (3.4-5.0); ANION GAP 5 mmol/L (5-15); CALCIUM 9.3 mg/dL (8.5-10.1); CHLORIDE 107 mmol/L (98-107); CREATININE 0.56 mg/dL (0.55-1.02); IRON LEVEL 148 mcg/dL (50-170)
[2018-02-01 12:46] LABS: % IRON SATURATION 47 % (20-55); ALKALINE PHOSPHATASE 61 U/L (45-117); BILIRUBIN,TOTAL 1.8 mg/dL (0.2-1.0); TOTAL IRON BINDING CAPACITY 312 mcg/dL (250-450); TOTAL PROTEIN 7.7 g/dL (6.4-8.2)
== END | disposition home or self-care (01) ==
LOC: CFH 08:51
PROVIDERS: ATTEND Internal Medicine Cardiovascular Disease
DX: I07.1 Rheumatic tricuspid insufficiency (principal); I37.1 Nonrheumatic pulmonary valve insufficiency; I27.0 Primary pulmonary hypertension; R06.02 Shortness of breath
CPT/HCPCS: 36415; 80053; 83540; 83550; 85025; 93306

== ENCOUNTER → 2020-08-10 | Outpatient (CLI) | payer OTHER ==
[~2020-08-10] MED LIST changes: -ASPI-621 PO; +ASPI81TA45 PO; +HYDR-3248 PO; -HYDR-3307 PO; +SENN-177 PO; -SENN1TAB8 PO
== END | disposition home or self-care (01) ==
LOC: CFH 13:56
PROVIDERS: ATTEND Internal Medicine Cardiovascular Disease
DX: I08.8 Other rheumatic multiple valve diseases (principal); I27.0 Primary pulmonary hypertension
CPT/HCPCS: 93306